=== PATIENT | female | born 1955 | race Two or more races ===

== ENCOUNTER → 2017-08-13 | Outpatient (CLI) | payer OTHER | END | disposition home or self-care (01) | LOC: TOM 10:39 | DX: R91.1 Solitary pulmonary nodule (principal) ==

== ENCOUNTER 2020-07-05 17:15 | Inpatient (IN) | payer OTHER ==
[~2020-07-05] VITALS: Ht 172.7 cm; Wt 62.6 kg
[2020-07-14] MEDS ORDERED: INTEGRA F CAPS1 EACH PO (10:41)
== END 2020-07-14 14:47 | disposition home or self-care (01) | DRG 330 ==
LOC: ER 17:15 → SURH 07-06 11:41
PROVIDERS: ADMIT Surgery; ATTEND Surgery
PROC: 0DBP8ZX Excision of Rectum, Via Natural or Artificial Opening Endoscopic, Diagnostic (ICD-10-PCS; 2020-07-08)
PROC: 0DJD8ZZ Inspection of Lower Intestinal Tract, Via Natural or Artificial Opening Endoscopic (ICD-10-PCS; 2020-07-08)
PROC: BW24YZZ Computerized Tomography (CT Scan) of Chest and Abdomen using Other Contrast (ICD-10-PCS; 2020-07-08)
PROC: 0DBN4ZZ Excision of Sigmoid Colon, Percutaneous Endoscopic Approach (ICD-10-PCS; 2020-07-10)
PROC: 0D1B4Z4 Bypass Ileum to Cutaneous, Percutaneous Endoscopic Approach (ICD-10-PCS; 2020-07-10)
PROC: 0DBP4ZZ Excision of Rectum, Percutaneous Endoscopic Approach (ICD-10-PCS; principal; 2020-07-10 07:00)
DX: C19 Malignant neoplasm of rectosigmoid junction (principal); K56.690 Other partial intestinal obstruction; R63.0 Anorexia; E87.6 Hypokalemia; K59.00 Constipation, unspecified

== ENCOUNTER 2020-07-16 10:34 | Emergency (ER) | payer OTHER ==
[~2020-07-16] VITALS: Ht 172.7 cm; Wt 62.1 kg
[~2020-07-16 10:34] MED LIST: INTEGRA F CAPS1 EACH PO
== END 2020-07-16 17:30 | disposition home or self-care (01) ==
LOC: ER 10:34
DX: K94.13 Enterostomy malfunction (principal); J44.9 Chronic obstructive pulmonary disease, unspecified; Y83.8 Other surgical procedures as the cause of abnormal reaction of the patient, or of later complication, without mention of misadventure at the time of the procedure

== ENCOUNTER 2020-09-15 05:30 | Day surgery (SDC) | payer OTHER | END 2020-09-15 11:35 | disposition home or self-care (01) | LOC: CIR.AMB 05:30 | PROVIDERS: ATTEND Surgery | DX: C19 Malignant neoplasm of rectosigmoid junction (principal); Z20.822 Contact with and (suspected) exposure to COVID-19 | CPT/HCPCS: 36561; C1751 ==

== ENCOUNTER 2021-05-10 07:28 | Outpatient (CLI) | payer OTHER ==
[2021-05-17] MEDS ORDERED: FAMOTIDINE20 MG (08:43)
[2021-05-17] MEDS ORDERED: PROAIR HFA8.5 GM (08:43)
[2021-05-17] MEDS ORDERED: ACID REDUCER20 M1 (08:43)
== END 2021-05-25 10:05 | disposition home or self-care (01) ==
LOC: RX STUDY 07:28
PROVIDERS: ATTEND Surgery
DX: C19 Malignant neoplasm of rectosigmoid junction (principal); Z93.2 Ileostomy status

== ENCOUNTER 2021-05-14 09:00 | Inpatient (IN) | payer OTHER ==
[~2021-05-14] VITALS: Ht 172.7 cm; Wt 52.2 kg
[2021-05-17] MEDS ORDERED: FAMOTIDINE20 MG (08:43)
[2021-05-17] MEDS ORDERED: PROAIR HFA8.5 GM (08:43)
[2021-05-17] MEDS ORDERED: ACID REDUCER20 M1 (08:43)
== END 2021-05-22 14:03 | disposition home or self-care (01) | DRG 331 ==
LOC: O/R 05-17 05:20 → SURG 05-17 05:20 → SURH 05-17 07:00 → SURG 05-17 09:48
PROVIDERS: ADMIT Surgery; ATTEND Surgery
PROC: 0DSB4ZZ Reposition Ileum, Percutaneous Endoscopic Approach (ICD-10-PCS; principal; 2021-05-17 07:00)
DX: C19 Malignant neoplasm of rectosigmoid junction (principal); Z93.2 Ileostomy status; Z20.822 Contact with and (suspected) exposure to COVID-19; K66.0 Peritoneal adhesions (postprocedural) (postinfection)

== ENCOUNTER 2023-05-14 17:07 | Inpatient (IN) | payer OTHER ==
[~2023-05-14] VITALS: Ht 165.1 cm; Wt 52.2 kg
[~2023-05-14 17:07] MED LIST changes: +ACID REDUCER20 M1; +FAMOTIDINE20 MG; +PROAIR HFA8.5 GM
[2023-05-14 19:03] LABS: HEMATOCRIT 34.1 % (36.0-45.00); HEMOGLOBIN 11.3 g/dL (12.0-15.00); MEAN CORPUSCULAR HEMOGLOBIN 25.1 pg (27.00-32.0); PLATELET COUNT 347 K/uL (150-450); RED BLOOD COUNT 4.49 M/uL (4.00-6.00)
[2023-05-14 19:10] LABS: RED CELL DISTRIBUTION WIDTH 19.1 % (11.5-14.5)
[2023-05-14 19:16] LABS: ALBUMIN 2.9 gm/dL (3.4-5.0); BILIRUBIN TOTAL 0.71 mg/dL (0.3-1.2); BILIRUBIN,CONJUGATED 0.36 mg/dL (0.0-0.2); BILIRUBIN,UNCONJUGATED 0.35 mg/dL (0.0-0.6); CREATININE SERUM 1.17 mg/dL (0.55-1.02); GFR 45.73; GLOBULINA 3.8 G/DL (2.4-3.5); POTASSIUM 3.26 mEq/L (3.5-5.1); TOTAL PROTEIN 6.7 gm/dL (6.4-8.2)
[2023-05-15 03:15] LABS: INR 1.1; PARTIAL THROMBOPLASTIN TIME 30.5 SECONDS (22.0-34.0); PROTHROMBIN TIME 11.5 SECONDS (9.0-11.5)
[2023-05-15 05:09] LABS: ABG PH 7.481 (7.35-7.45); ABG PO2 87.3 mmHg (80-100); ABG pCO2 28.6 mmHg (35-45); BASE EXCESS -1.3 mmol/l; BICARBONATE 20.9 mmol/l (23-25); SaO2 97.3 %; Tco2 21.7 mmol/l; allen test SATISFACTORY; o2 21 %; puncture site RADIAL RIGHT
[2023-05-15 05:31] LABS: URINE APPEARANCE Clear; URINE BILIRRUBIN Negative (NEGATIVE); URINE BLOOD Negative; URINE COLOR Yellow; URINE GLUCOSE Negative (NEGATIVE); URINE LEUKOCYTE Negative; URINE NITRATE Negative; URINE PROTEIN Negative (NEGATIVE)
[2023-05-15 05:35] LABS: URINE BACTERIA 17.6 uL (0.0-1933); URINE EPITHELIAL CELLS 4.4 uL (0.0-38.8); URINE RBC 4.3 uL (0.0-20.8); URINE WBC 4.4 uL (0.0-23.2)
[2023-05-15 13:49] LABS: CALCIUM 8.5 mg/dL (8.5-10.1); CHOL HDL RATIO 2.3 (0-5.0); CREATININE SERUM 0.96 mg/dL (0.55-1.02); GFR 57.46; POTASSIUM 3.1 mEq/L (3.5-5.1)
[2023-05-16 06:26] LABS: HEMATOCRIT 32.1 % (36.0-45.00); HEMOGLOBIN 10.5 g/dL (12.0-15.00); MEAN CELL VOLUME 76.2 fL (80.00-100.00); MEAN CORPUSCULAR HEMOGLOBIN 24.8 pg (27.00-32.0); MEAN CORPUSCULAR HGB CONC 32.6 g/dl (32.0-36.0); PLATELET COUNT 278 K/uL (150-450); RED BLOOD COUNT 4.21 M/uL (4.00-6.00); RED CELL DISTRIBUTION WIDTH 19.4 % (11.5-14.5)
[2023-05-16 06:52] LABS: ALBUMIN 2.2 gm/dL (3.4-5.0); BILIRUBIN TOTAL 0.51 mg/dL (0.3-1.2); CALCIUM 8.4 mg/dL (8.5-10.1); CREATININE SERUM 0.96 mg/dL (0.55-1.02); GFR 57.46; POTASSIUM 3.74 mEq/L (3.5-5.1); TOTAL PROTEIN 5.2 gm/dL (6.4-8.2)
[2023-05-19 06:38] LABS: INR 1.04; PARTIAL THROMBOPLASTIN TIME 35.1 SECONDS (22.0-34.0); PROTHROMBIN TIME 10.9 SECONDS (9.0-11.5)
[2023-05-19 06:54] LABS: ALBUMIN 2.5 gm/dL (3.4-5.0); BILIRUBIN TOTAL 0.43 mg/dL (0.3-1.2); CALCIUM 8.6 mg/dL (8.5-10.1); CHOL HDL RATIO 2.3 (0-5.0); CREATININE SERUM 0.91 mg/dL (0.55-1.02); GFR 61.11; GLOBULINA 3.4 G/DL (2.4-3.5); MAGNESIUM 1.9 mg/dL (1.8-2.4); POTASSIUM 3.41 mEq/L (3.5-5.1); TOTAL PROTEIN 5.9 gm/dL (6.4-8.2)
[2023-05-19 07:15] LABS: HEMATOCRIT 31.7 % (36.0-45.00); MEAN CELL VOLUME 75.1 fL (80.00-100.00); MEAN CORPUSCULAR HGB CONC 33.2 g/dl (32.0-36.0); PLATELET COUNT 278 K/uL (150-450); RED BLOOD COUNT 4.22 M/uL (4.00-6.00); RED CELL DISTRIBUTION WIDTH 19.7 % (11.5-14.5)
[2023-05-19 07:31] LABS: HEMOGLOBIN 10.5 g/dL (12.0-15.00); MEAN CORPUSCULAR HEMOGLOBIN 24.8 pg (27.00-32.0)
[2023-05-19 09:09] LABS: UREA CLEARANCE 18.4 ML/MIN
[2023-05-19 15:01] LABS: ALBUMIN 2.2 gm/dL (3.4-5.0); BILIRUBIN TOTAL 0.38 mg/dL (0.3-1.2); BILIRUBIN,CONJUGATED 0.22 mg/dL (0.0-0.2); BILIRUBIN,UNCONJUGATED 0.16 mg/dL (0.0-0.6)
[2023-05-23 23:36] LABS: HEMATOCRIT 24.3 % (36.0-45.00); MEAN CELL VOLUME 74.5 fL (80.00-100.00); MEAN CORPUSCULAR HEMOGLOBIN 25.1 pg (27.00-32.0); MEAN CORPUSCULAR HGB CONC 33.6 g/dl (32.0-36.0); PLATELET COUNT 231 K/uL (150-450); RED BLOOD COUNT 3.26 M/uL (4.00-6.00); RED CELL DISTRIBUTION WIDTH 19.1 % (11.5-14.5)
[2023-05-23 23:40] LABS: HEMOGLOBIN 8.2 g/dL (12.0-15.00)
[2023-05-23 23:50] LABS: ALBUMIN 2.5 gm/dL (3.4-5.0); BILIRUBIN TOTAL 0.51 mg/dL (0.3-1.2); CALCIUM 8.3 mg/dL (8.5-10.1); CREATININE SERUM 0.75 mg/dL (0.55-1.02); GFR 76.39; GLOBULINA 3.1 G/DL (2.4-3.5); TOTAL PROTEIN 5.6 gm/dL (6.4-8.2)
[2023-05-24 00:41] LABS: POTASSIUM 2.89 mEq/L (3.5-5.1)
[2023-05-26 07:14] LABS: INR 0.97; PARTIAL THROMBOPLASTIN TIME 28.5 SECONDS (22.0-34.0); PROTHROMBIN TIME 10.2 SECONDS (9.0-11.5)
[2023-05-26 07:43] LABS: ALBUMIN 2.3 gm/dL (3.4-5.0); BILIRUBIN TOTAL 0.44 mg/dL (0.3-1.2); BILIRUBIN,CONJUGATED 0.16 mg/dL (0.0-0.2); BILIRUBIN,UNCONJUGATED 0.28 mg/dL (0.0-0.6); CALCIUM 8.6 mg/dL (8.5-10.1); CHOL HDL RATIO 2.6 (0-5.0); CREATININE SERUM 0.68 mg/dL (0.55-1.02); GFR 85.54; GLOBULINA 3.2 G/DL (2.4-3.5); MAGNESIUM 1.9 mg/dL (1.8-2.4); POTASSIUM 3.62 mEq/L (3.5-5.1); TOTAL PROTEIN 5.5 gm/dL (6.4-8.2)
[2023-05-26 08:03] LABS: MEAN CELL VOLUME 75.2 fL (80.00-100.00); MEAN CORPUSCULAR HGB CONC 33.7 g/dl (32.0-36.0); PLATELET COUNT 314 K/uL (150-450); RED BLOOD COUNT 3.73 M/uL (4.00-6.00); RED CELL DISTRIBUTION WIDTH 19.5 % (11.5-14.5)
[2023-05-26 08:19] LABS: HEMOGLOBIN 9.4 g/dL (12.0-15.00); MEAN CORPUSCULAR HEMOGLOBIN 25.2 pg (27.00-32.0)
[2023-05-26 10:58] LABS: UREA CLEARANCE 26.1 ML/MIN
== END 2023-05-27 13:13 | disposition home or self-care (01) | DRG 389 ==
LOC: ER 17:07 → MEDI 23:34 → ICU 05-22 21:29 → MEDI 05-23 19:38
PROVIDERS: General Practice; ADMIT Specialist; ATTEND Specialist
PROC: BW21ZZZ Computerized Tomography (CT Scan) of Abdomen and Pelvis (ICD-10-PCS; principal; 2023-05-14)
PROC: 02HV33Z Insertion of Infusion Device into Superior Vena Cava, Percutaneous Approach (ICD-10-PCS; 2023-05-17)
PROC: BW38YZZ Magnetic Resonance Imaging (MRI) of Head using Other Contrast (ICD-10-PCS; 2023-05-21)
PROC: BW2FZZZ Computerized Tomography (CT Scan) of Neck (ICD-10-PCS; 2023-05-21)
DX: K56.699 Other intestinal obstruction unspecified as to partial versus complete obstruction (principal); C19 Malignant neoplasm of rectosigmoid junction; S06.340A Traumatic hemorrhage of right cerebrum without loss of consciousness, initial encounter; C78.00 Secondary malignant neoplasm of unspecified lung; C78.7 Secondary malignant neoplasm of liver and intrahepatic bile duct; C79.70 Secondary malignant neoplasm of unspecified adrenal gland; N13.30 Unspecified hydronephrosis; E46 Unspecified protein-calorie malnutrition; C79.89 Secondary malignant neoplasm of other specified sites; E86.0 Dehydration; J44.9 Chronic obstructive pulmonary disease, unspecified; Z20.822 Contact with and (suspected) exposure to COVID-19; W13.3XXA Fall through floor, initial encounter
CPT/HCPCS: 70545